=== PATIENT | male | born 1950 | race Caucasian/White ===

== ENCOUNTER → 2017-05-19 | Outpatient (CLI) | payer OTHER | LOC: FIMAGING 12:51 | PROVIDERS: ATTEND Physician Assistant | DX: M25.532 Pain in left wrist (principal) ==

== ENCOUNTER 2017-10-10 23:45 | Emergency (ER) | payer OTHER ==
[2017-10-11] MEDS ORDERED: ASPIRIN 81 MG CHEWABLE TAB PO ONE (00:02)
--- NOTE | 2017-10-11 00:02 | CPEKG ---
Heart Rate: 78 RR Interval: 769 P-R Interval: 144 QRSD Interval: 90 QT Interval: 384 QTC Interval: 438 P [place]: 65 QRS [place]: 44 T Wave [place]: 65 EKG Severity - NORMAL ECG - EKG Impression: SINUS RHYTHM Electronically Signed By: Jamil Thomas 11-Oct-2017 01:59:27
--- NOTE | 2017-10-11 00:21 | EDPHY ---
H & P Stated Complaint: right arm pain, high BP Time Seen by Provider: 10/10/17 23:56 HPI/ROS: Chief Complaint: Right arm pain, high blood pressure HPI: 67-year-old male with a history of hypertension has been having waxing and waning right arm pain since about 4 o'clock this afternoon. At worst is about a 7 on 10. Right now is a 3/10. Has not had any associated shortness of breath. Is described from his right armpit down the inside part of his arm. He has not have any substernal chest pain. No shortness of breath. No recent injuries or exertion. There are no aggravating or alleviating factors. He checked his blood pressure tonight knows he was elevated 190s. He did take his usual blood pressure medication about 10 30. No fevers or chills. No cough. He is concerned that the pain might be because of his heart is presenting for evaluation. ROS: 10 point Review of Systems is negative except as noted in the HPI. PMH: Hypertension Social History: Remote smoking, occasional alcohol, no recreational drug use Family History: No family history of coronary artery disease Physical Exam: Gen: Awake, Alert, No Distress HEENT: Nose: no rhinorrhea Eyes: PERRLA, EOMI Mouth: Moist mucosa Neck: Supple, no JVD Chest: nontender, lungs clear to auscultation Heart: S1, S2 normal, no murmur Abd: Soft, non-tender, no guarding Back: no CVA tenderness, no midline tenderness Ext: no edema, patient has tenderness with palpation of his medial biceps muscle reproducing his presenting complaint Skin: no rash Neuro: CN II-XII intact, Sensation grossly intact, Strength 5/5 in bilateral upper and lower extremities - Personal History Current Tetanus Diphtheria and Acellular Pertussis (TDAP): Yes - Medical/Surgical History Hx Asthma: No Hx Chronic Respiratory Disease: No Hx Diabetes: No Hx Cardiac Disease: Yes Hx Renal Disease: No Hx Cirrhosis: No Hx Alcoholism: No Hx HIV/AIDS: No Hx Splenectomy or Spleen Trauma: No Other PMH: high BP, enlarged prostate. hyperlipidimia - Social History Smoking Status: Never smoked Constitutional: Initial Vital Signs Temperature (C) 36.9 C 10/10/17 23:48 Heart Rate 86 10/10/17 23:48 Respiratory Rate 20 10/10/17 23:48 Blood Pressure 195/106 H 10/10/17 23:48 O2 Sat (%) 94 10/10/17 23:48 O2 Delivery Mode Room Air Allergies/Adverse Reactions: No Known Allergies Allergy (Unverified 10/10/17 23:47) Medical Decision Making - Diagnostics EKG Interpretation: ECG time 12 midnight, sinus rhythm with a rate of 78, normal axis, normal intervals, no acute ST or T-wave changes. Impression: Normal ECG. Imaging Results: Chest x-ray is negative per my interpretation Imaging: I viewed and interpreted images myself ED Course/Re-evaluation: 67-year-old male with right arm pain since the afternoon. He has a normal ECG. Troponin is negative. Chest x-ray is negative. Patient presented hypertensive but is blood pressure resolved without any further treatment. His pain has also resolved. No findings suggestive of ACS at this time. Will discharge with follow-up with his primary care physician for referral for outpatient stress testing. - Data Points Laboratory Results: Laboratory Results 10/11/17 00:00 10/11/17 00:00 10/11/17 10/11/17 00:00 00:00 WBC 8.47 10^3/uL 10^3/uL (3.80-9.50) RBC 4.95 10^6/uL 10^6/uL (4.40-6.38) Hgb 15.4 g/dL g/dL (13.7-17.5) Hct 43.5 % % (40.0-51.0) MCV 87.9 fL fL (81.5-99.8) MCH 31.1 pg pg (27.9-34.1) MCHC 35.4 g/dL g/dL (32.4-36.7) RDW 12.3 % % (11.5-15.2) Plt Count 236 10^3/uL 10^3/uL (150-400) MPV 10.5 fL fL (8.7-11.7) Neut % (Auto) 53.8 % % (39.3-74.2) Lymph % (Auto) 30.1 % % (15.0-45.0) Marshall % (Auto) 9.8 % % (4.5-13.0) Eos % (Auto) 4.5 % % (0.6-7.6) Baso % (Auto) 1.1 % % (0.3-1.7) Nucleat RBC Rel Count 0.0 % % (0.0-0.2) Absolute Neuts (auto) 4.56 10^3/uL 10^3/uL (1.70-6.50) Absolute Lymphs (auto) 2.55 10^3/uL 10^3/uL (1.00-3.00) Absolute Monos (auto) 0.83 10^3/uL H 10^3/uL (0.30-0.80) Absolute Eos (auto) 0.38 10^3/uL 10^3/uL (0.03-0.40) Absolute Basos (auto) 0.09 10^3/uL 10^3/uL (0.02-0.10) Absolute Nucleated RBC 0.00 10^3/uL 10^3/uL (0-0.01) Immature Gran % 0.7 % % (0.0-1.1) Immature Gran # 0.06 10^3/uL 10^3/uL (0.00-0.10) Sodium 145 mEq/L mEq/L (135-145) Potassium 3.9 mEq/L mEq/L (3.5-5.2) Chloride 107 mEq/L mEq/L (97-110) Carbon Dioxide 25 mEq/l mEq/l (22-31) Anion Gap 13 mEq/L mEq/L (8-16) BUN 29 mg/dL H mg/dL (7-23) Creatinine 1.2 mg/dL mg/dL (0.7-1.3) Estimated GFR > 60 Glucose 127 mg/dL H mg/dL (70-100) Calcium 9.6 mg/dL mg/dL (8.5-10.4) Troponin I < 0.012 ng/mL ng/mL (0.000-0.034) Medications Given: Discontinued Medications Aspirin (Aspirin) 324 mg PO EDNOW ONE Stop: 10/11/17 00:03 Last Admin: 10/11/17 00:05 Dose: 324 mg Departure - Departure Disposition: Home, Routine, Self-Care Clinical Impression: Chest pain, Hypertension Condition: Good Instructions: Hypertension (ED), Chest Pain (ED) Additional Instructions: Follow up with primary care physician in 2-3 days to arrange for an outpatient stress test. Return to the emergency department for increasing chest pain, shortness of breath, fevers, chills, cough, headache, nausea, vomiting, or any other concerns. Referrals: Jarvis Page MD [Primary Care Provider] - As per Instructions
[2017-10-11 01:03] VITALS: BP 154/85; PULSE 70; RESP 15; O2SAT 95
[2017-10-11 01:07] LABS: PLATELET COUNT 236 10^3/uL (150-400)
[2017-10-11 01:31] VITALS: TEMP 98.1
== END 2017-10-11 01:31 | disposition home or self-care (01) ==
DX: R07.9 Chest pain, unspecified (principal); I10 Essential (primary) hypertension

== ENCOUNTER → 2017-10-27 | Outpatient (CLI) | payer OTHER | LOC: BHFA 09:00 | PROVIDERS: ATTEND Internal Medicine Cardiovascular Disease | DX: R94.39 Abnormal result of other cardiovascular function study (principal) ==

== ENCOUNTER → 2017-11-04 | Outpatient (CLI) | payer OTHER | LOC: BHFA 08:30 | PROVIDERS: ATTEND Internal Medicine Interventional Cardiology | DX: R94.39 Abnormal result of other cardiovascular function study (principal) | CPT/HCPCS: 78452; 93017; A9500 ==

== ENCOUNTER → 2017-12-06 | Outpatient (CLI) | payer OTHER | LOC: BHFA 08:30 | PROVIDERS: ATTEND Internal Medicine Cardiovascular Disease | DX: I10 Essential (primary) hypertension (principal) ==

== ENCOUNTER → 2018-10-04 | Outpatient (CLI) | payer OTHER | LOC: FIMAGING 07:22 | PROVIDERS: ATTEND Family Medicine | DX: Z13.6 Encounter for screening for cardiovascular disorders (principal); Z87.891 Personal history of nicotine dependence ==